=== PATIENT | male | born 1955 | race Caucasian/White ===

== ENCOUNTER 2018-03-19 10:43 | Inpatient (IN) | payer OTHER ==
[~2018-03-19] VITALS: Ht 193 cm; Wt 112.0 kg
[2018-03-19 11:10] LABS: BASOPHILS % (AUTO) 0.4 % (0.0-5.0); EOSINOPHILS % (AUTO) 1.1 % (0.0-8.0); HEMATOCRIT 40.4 % (42-54); LYMPHOCYTES % (AUTO) 25.4 % (21.0-51.0); MEAN CORPUSCULAR HEMOGLOBIN 31.6 pg (27.0-33.0); MEAN CORPUSCULAR HGB CONC 35.5 g/dL (32.0-36.0); MEAN CORPUSCULAR VOLUME 89.1 fL (79-99); MONOCYTES % (AUTO) 8.3 % (3.0-13.0); NEUTROPHILS % (AUTO) 64.8 % (40.0-77.0); PLATELET COUNT (AUTO) 266 K/uL (130-400); RED BLOOD CELL COUNT(AUTO) 4.53 MIL/uL (4.50-6.20); RED CELL DISTRIBUTION WIDTH 12.5 % (11.0-15.5); WHITE BLOOD COUNT (AUTO) 6.1 K/uL (4.8-10.8)
[2018-03-19 11:22] LABS: POTASSIUM 4.4 mmol/L (3.5-5.1)
[2018-03-19 11:27] LABS: ALBUMIN 3.9 g/dL (3.5-5.0); BILIRUBIN,TOTAL 1.4 mg/dL (0.2-1.0); TOTAL PROTEIN, SERUM 7.9 g/dL (6.0-8.3)
[2018-03-19 11:40] LABS: INR 0.96 (0.85-1.15); PARTIAL THROMBOPLASTIN TIME 27.5 SEC (26.3-35.5); PROTHROMBIN TIME 10.1 SEC (9.6-11.6)
[2018-03-19] MEDS ORDERED: IOPAMIDOL-370 100 ML VIAL IV ONE (11:45)
[2018-03-19] MEDS ORDERED: ENOXAPARIN SODIUM 100 MG/1 ML SQ ONE (12:43)
[2018-03-19] MEDS ORDERED: KETOROLAC TROMETHAMINE 15MG/ML ONE (12:48)
[2018-03-19 15:40] VITALS: BP 149/78
[2018-03-19] MEDS ORDERED: SODIUM CHLORIDE 0.9% 10 ML VIAL IVP PRN (16:30)
[2018-03-19] MEDS ORDERED: KETOROLAC TROMETHAMINE 30MG/ML IV PRN (16:30)
[2018-03-19 19:34] VITALS: BP 108/45
[2018-03-19 19:37] VITALS: BP 138/79
[2018-03-19] MEDS ORDERED: ACETAMINOPHEN 325 MG TAB PO PRN ×2 (19:45→20:30)
[2018-03-19] MEDS ORDERED: HYDROCODONE/ACETAMINOPHEN 5/325 MG TAB PO PRN (20:00)
[2018-03-19] MEDS: ENOXAPARIN SODIUM 120 MG/0.8ML SQ SCH (21:08)
[2018-03-19 23:50] VITALS: BP 111/56
[2018-03-20] MEDS: KETOROLAC TROMETHAMINE 30MG/ML IV PRN ×2 (00:47→13:14)
[2018-03-20 03:49] LABS: HEMATOCRIT 35.9 % (42-54); MEAN CORPUSCULAR HEMOGLOBIN 32.8 pg (27.0-33.0); MEAN CORPUSCULAR HGB CONC 36.9 g/dL (32.0-36.0); MEAN CORPUSCULAR VOLUME 88.8 fL (79-99); NUCLEATED RED BLOOD CELLS 0.1 % (0.0-0.19); PLATELET COUNT (AUTO) 241 K/uL (130-400); RED BLOOD CELL COUNT(AUTO) 4.04 MIL/uL (4.50-6.20); RED CELL DISTRIBUTION WIDTH 12.3 % (11.0-15.5); WHITE BLOOD COUNT (AUTO) 4.3 K/uL (4.8-10.8)
[2018-03-20 03:58] VITALS: BP 131/61
[2018-03-20 04:05] LABS: ALBUMIN 3.3 g/dL (3.5-5.0); BILIRUBIN,TOTAL 1.1 mg/dL (0.2-1.0); CREATININE 0.9 mg/dL (0.5-1.5); TOTAL PROTEIN, SERUM 6.9 g/dL (6.0-8.3)
[2018-03-20 07:50] VITALS: BP 129/84
[2018-03-20] MEDS: ENOXAPARIN SODIUM 120 MG/0.8ML SQ SCH ×2 (09:38→19:49)
[2018-03-20] MEDS: POLYETHYLENE GLYCOL 3350 17 GM POWD.PACK PO SCH (11:13)
[2018-03-20 11:34] VITALS: BP 108/58
[2018-03-20] MEDS: FOLIC ACID 5 MG/ML 10 ML VIAL IV SCH (13:14)
[2018-03-20 16:48] VITALS: BP 115/66
[2018-03-20 19:12] VITALS: BP 116/72
[2018-03-20 23:11] VITALS: BP 109/57
[2018-03-21 03:51] VITALS: BP 113/67
[2018-03-21 07:43] VITALS: BP 127/86
[2018-03-21] MEDS ORDERED: POLYETHYLENE GLYCOL 3350 17 GM POWD.PACK PO SCH (09:00)
[2018-03-21] MEDS: KETOROLAC TROMETHAMINE 30MG/ML IV PRN (09:00)
[2018-03-21] MEDS: ENOXAPARIN SODIUM 120 MG/0.8ML SQ SCH ×2 (09:01→20:14)
[2018-03-21] MEDS ORDERED: COMPOUND IV REFRIGERATED 1 EACH IVSOLN MISC PRN (09:45)
[2018-03-21] MEDS: POLYETHYLENE GLYCOL 3350 17 GM POWD.PACK PO SCH (11:00)
[2018-03-21] MEDS ORDERED: ACETAMINOPHEN-CODEINE 300/30MG TAB PO PRN (11:15)
[2018-03-21 11:33] VITALS: BP 142/99
[2018-03-21] MEDS: FOLIC ACID 5 MG/ML 10 ML VIAL IV SCH (11:51)
[2018-03-21 16:06] VITALS: BP 123/70
[2018-03-21 19:07] VITALS: BP 125/69
[2018-03-21] MEDS ORDERED: BISACODYL 5 MG TABLET.DR PO SCH (22:15)
[2018-03-21] MEDS ORDERED: BISACODYL 5 MG TABLET.DR PO ONE (22:40)
[2018-03-21 23:15] VITALS: BP 129/80
[2018-03-22 03:45] VITALS: BP 114/73
[2018-03-22 07:00] VITALS: BP 128/76
[2018-03-22] MEDS ORDERED: RIVA15TA PO (10:15)
[2018-03-22] MEDS ORDERED: RIVAROXABAN 15 MG TABLET PO SCH (11:00)
[2018-03-22] MEDS ORDERED: RIVAROXABAN 15 MG TABLET ONE (11:01)
== END 2018-03-22 13:25 | disposition home or self-care (01) | DRG 176 ==
LOC: EDH 10:43 → EDHIP 13:05 → 2BH 15:41 → 2DH 03-20 00:32
PROVIDERS: ADMIT Family Medicine; ATTEND Family Medicine
DX: I26.99 Other pulmonary embolism without acute cor pulmonale (principal); D70.9 Neutropenia, unspecified; I27.20 Pulmonary hypertension, unspecified; J98.11 Atelectasis; Z80.42 Family history of malignant neoplasm of prostate; Z85.46 Personal history of malignant neoplasm of prostate; Z86.711 Personal history of pulmonary embolism; Z86.718 Personal history of other venous thrombosis and embolism; Z88.8 Allergy status to other drugs, medicaments and biological substances
CPT/HCPCS: 36415; 71045; 71275; 80053; 84484; 85025; 85027; 85610; 85730; 93005; 93306; 93970; J1650; J1885; J3490; Q9967